=== PATIENT | female | born 1960 | race Caucasian/White ===

== ENCOUNTER 2018-11-04 09:24 | Day surgery (SDC) | payer MEDICARE, OTHER ==
[~2018-11-04] VITALS: Ht 154.9 cm; Wt 65.8 kg
[~2018-11-04 09:24] MED LIST: ATOR40TA PO; BACL10 PO; GABA300 PO; HYDHCL25 PO; OMEPRAZOLE20 MG PO; Prinivil10 MG PO
--- NOTE | 2018-11-04 09:53 | NUR ---
Ambulatory in Day SurgeryPatient states colon prep results clear. History, Chart, Medications and Allergies reviewed before start of procedure.Lungs clear T/O to Auscultation. Patient confirms NPO status and agrees with scheduled surgery. Pre-Op teaching done. Pt verbalizes understanding.
--- NOTE | 2018-11-04 10:30 | NUR ---
11/04/18 1030 CharliPankaj PATIENT DETERMINED TO BE ASA APPROPRIATE FOR PROPOFOL SEDATION PRIOR TO START OF PROCEDURE BY . 3-LEAD EKG REVIEWED WITH PHYSICIAN PRIOR TO START OF PROCEDURE.Patient to ENDO 1History, Chart, Medications and Allergies reviewed before start of procedure.MONITOR INTACT WITH CONTINUOUS PULSE OXIMETRY AND INTERMITTENT BP.O2 VIA N/C INTACT THROUGHOUT SEDATION/PROCEDURE.
--- NOTE | 2018-11-04 11:15 | NUR ---
Discharge instructions reviewed with patient. Patient verbalizes understanding. Copy given to patient to take home.
== END 2018-11-04 11:23 | disposition home or self-care (01) ==
LOC: ORSCMMR 09:24 → ORD 10:30 → ORSCMMR 10:30
PROVIDERS: Internal Medicine Gastroenterology
PROC: 0DBK8ZX Excision of Ascending Colon, Via Natural or Artificial Opening Endoscopic, Diagnostic (ICD-10-PCS; principal; 2018-11-04 10:30)
PROC: 0DBH8ZX Excision of Cecum, Via Natural or Artificial Opening Endoscopic, Diagnostic (ICD-10-PCS; principal; 2018-11-04 10:30)
DX: K62.5 Hemorrhage of anus and rectum (principal); D12.2 Benign neoplasm of ascending colon; D12.0 Benign neoplasm of cecum; K57.30 Diverticulosis of large intestine without perforation or abscess without bleeding; K64.8 Other hemorrhoids; K64.4 Residual hemorrhoidal skin tags; I10 Essential (primary) hypertension; K21.9 Gastro-esophageal reflux disease without esophagitis; E78.00 Pure hypercholesterolemia, unspecified; F17.210 Nicotine dependence, cigarettes, uncomplicated; Z79.899 Other long term (current) drug therapy
CPT/HCPCS: 88305; J2704; J7120

== ENCOUNTER 2019-02-04 16:12 | Emergency (ER) | payer MEDICARE, OTHER ==
[~2019-02-04] VITALS: Ht 154.9 cm; Wt 63.5 kg
[2019-02-04] MEDS ORDERED: Norco 5-325 Ta1 EACH PO (17:34)
== END 2019-02-04 17:45 | disposition home or self-care (01) ==
LOC: ER 16:12
DX: T84.020A Dislocation of internal right hip prosthesis, initial encounter (principal); I10 Essential (primary) hypertension; E78.5 Hyperlipidemia, unspecified; K21.9 Gastro-esophageal reflux disease without esophagitis; F17.210 Nicotine dependence, cigarettes, uncomplicated; Z79.899 Other long term (current) drug therapy
CPT/HCPCS: 27265; 73501; 73502; 99152; 99283-25; J2704; J7030

== ENCOUNTER → 2020-04-25 | Outpatient (CLI) | payer MEDICARE, OTHER ==
[~2020-04-25] MED LIST changes: +CHLO25 PO; +Norco 5-325 Ta1 EACH PO
[2020-04-27 11:10] LABS: HPV 16 Negative (Negative); HPV 18 Negative (Negative); HPV OTHER HR TYPES Negative (Negative)
== END | disposition home or self-care (01) ==
LOC: LAB SHORT 14:09 → LAB UCHC 14:09
PROVIDERS: Physician Assistant
DX: Z01.419 Encounter for gynecological examination (general) (routine) without abnormal findings (principal)
CPT/HCPCS: 87624; G0123

== ENCOUNTER 2020-06-21 21:03 | Emergency (ER) | payer MEDICARE, OTHER ==
[~2020-06-21] VITALS: Ht 152.4 cm; Wt 56.2 kg
[2020-06-21] MEDS ORDERED: IBU800 M1 PO (21:29)
[2020-06-21] MEDS ORDERED: TIZA4 PO (21:30)
[2020-06-21] MEDS ORDERED: PRINIVIL10 MG PO (21:31)
== END 2020-06-22 02:23 | disposition home or self-care (01) ==
LOC: ER 21:03
DX: T84.020A Dislocation of internal right hip prosthesis, initial encounter (principal); F17.200 Nicotine dependence, unspecified, uncomplicated; Z79.899 Other long term (current) drug therapy; X50.1XXA Overexertion from prolonged static or awkward postures, initial encounter
CPT/HCPCS: 27266; 36415; 73501; 96374-59; 96375; 99284-25; J1170; J2405; J2704; J7030

== ENCOUNTER 2021-03-29 17:27 | Emergency (ER) | payer MEDICARE, OTHER ==
[~2021-03-29] VITALS: Ht 152.4 cm; Wt 54.4 kg
[~2021-03-29 17:27] MED LIST changes: +IBU800 M1 PO; +PRINIVIL10 MG PO; +TIZA4 PO
[2021-03-29] MEDS ORDERED: Buspirone HCl15 MG PO (17:47)
== END 2021-03-29 21:45 | disposition home or self-care (01) ==
LOC: ER 17:27
DX: M24.451 Recurrent dislocation, right hip (principal); Z79.899 Other long term (current) drug therapy; F17.210 Nicotine dependence, cigarettes, uncomplicated; Z96.643 Presence of artificial hip joint, bilateral
CPT/HCPCS: 27222; 36415; 73501; 73502; 99152; 99283-25; J2704; J7030

== ENCOUNTER 2024-01-09 13:49 | Inpatient (IN) | payer MEDICARE, OTHER ==
[~2024-01-09] VITALS: Ht 152.4 cm; Wt 65.6 kg
[~2024-01-09 13:49] MED LIST changes: -AMOCLA875 PO; -Acetaminophen325 M1 PO; -CEPH500 PO; -Clindamycin HC150 MG PO; -DULOXETINE HCL60 M1 PO; -SULFAMETHOXAZO1 EAC1 PO; -VISBIOME 112.51 EACH PO
[2024-01-09 14:39] LABS: Hematocrit 32.1 % (33.0-51.0); Hemoglobin 10.8 g/dL (11.5-16.0); Mean Corpuscular HGB 29.3 pg (26.0-34.0); Mean Corpuscular HGB Conc 33.6 g/dL (31.5-36.5); Mean Corpuscular Volume 87 fL (80-100); Mean Platelet Volume 9.6 fL (9.1-12.4); Platelet Count 237 K/mm3 (150-400); RDW Standard Deviation 45.2 fL (35.1-46.3); Red Blood Cell Count 3.68 M/mm3 (3.80-5.20); White Blood Cell Count 26.51 K/mm3 (4.00-11.30)
[2024-01-09 15:00] LABS: BAND PERCENT MAN 4 % (0-8); BASOPHILS PERCENT MAN 0 % (0-2); EOSINOPHILS ABSOLUTE MAN 0.79 K/mm3 (0.00-0.68); EOSINOPHILS PERCENT MAN 3 % (0-6); LYMPHOCYTES ABSOLUTE MAN 0.53 K/mm3 (0.84-5.20); LYMPHOCYTES PERCENT MAN 2 % (21-46); MONOCYTES ABSOLUTE MAN 1.06 K/mm3 (0.16-1.47); MONOCYTES PERCENT MAN 4 % (4-13); NEUTROPHILS ABSOLUTE MAN 24.12 K/mm3 (1.96-9.15); SEG NEUTROPHILS PERCENT MAN 87 % (41-73); TOTAL CELLS COUNTED 100
[2024-01-09 15:02] LABS: Albumin, Blood 2.9 g/dL (3.4-5.0); Albumin/Globulin Ratio 0.9 (0.8-1.8); Bilirubin, Total 0.6 mg/dL (0.1-1.0); Bun/Creatinine Ratio 20.1 (12.0-20.0); Calcium, Blood 7.7 mg/dL (8.5-10.1); Creatinine, Blood 1.49 mg/dL (0.40-1.00); Globulin, Blood 3.4 g/dL (2.2-4.0); Total Protein, Blood 6.3 g/dL (6.4-8.2)
[2024-01-09] MEDS ORDERED: NS 1,000 ML IV SCH ×4 (17:10→17:55)
[2024-01-09] MEDS ORDERED: Piperacillin/Tazobactam Sod 3.375 GM in NS 100 ML IV ONE (17:15)
[2024-01-09] MEDS ORDERED: Vancomycin HCL 1,250 MG in NS 250 ML IV ONE (17:20)
[2024-01-09] MEDS ORDERED: FentaNYL Citrate 50 MCG/ML 2 ML Injection IV PRN (17:45)
[2024-01-09] MEDS ORDERED: Acetaminophen 325 MG TABLET PO PRN (17:45)
[2024-01-09] MEDS ORDERED: Ondansetron HCl 2 MG / ML 2ML Vial IV PRN (17:50)
[2024-01-09] MEDS ORDERED: Potassium Chloride 40 MEQ in NS 250 ML IV STA (17:55)
[2024-01-09] MEDS ORDERED: Enoxaparin 40 MG/0.4 ML SYR SC SCH (18:00)
--- NOTE | 2024-01-09 18:30 | NUR ---
ADMISSION PATIENT ADMITTED TO MEDICAL FLOOR. PATIENT INTERACTIVE AND ANXIOUS. PATIENT AMBULATED TO BATHROOM INDEPENDENTLY. PATIENT HAVING PAIN IN R ARM, INCREASING WITH PAIN. PATIENT DENIES ANY INJURY TO R ARM.
[2024-01-09 18:56] VITALS: BP 139/76
[2024-01-09] MEDS ORDERED: Magnesium Sulf 2 GM/Water 50ML 50 ML IV ONE (19:40)
[2024-01-09] MEDS ORDERED: MethylPREDNISolone Sod Succ 125 MG Vial IV SCH (20:00)
[2024-01-09] MEDS ORDERED: Clindamycin 900mg in D5W 50ML 50 ML IV SCH (20:00)
[2024-01-09] MEDS ORDERED: Gabapentin 100 MG Cap PO SCH (21:00)
[2024-01-10 02:17] VITALS: BP 119/70
[2024-01-10] MEDS ORDERED: NS 250 ML IV PRN (02:20)
[2024-01-10 04:17] LABS: BASOPHILS ABSOLUTE AUTO 0.05 K/mm3 (0.00-0.23); BASOPHILS PERCENT AUTO 0 % (0-2); EOSINOPHILS PERCENT AUTO 0 % (0-6); Hematocrit 30.8 % (33.0-51.0); IMMATURE GRAN ABSOLUTE AUTO 0.66 K/mm3 (0.00-0.10); IMMATURE GRAN PERCENT AUTO 3 % (0-1); LYMPHOCYTES ABSOLUTE AUTO 0.26 K/mm3 (0.84-5.20); LYMPHOCYTES PERCENT AUTO 1 % (21-46); MONOCYTES ABSOLUTE AUTO 0.28 K/mm3 (0.16-1.47); MONOCYTES PERCENT AUTO 1 % (4-13); Mean Corpuscular HGB 29.6 pg (26.0-34.0); Mean Corpuscular HGB Conc 32.5 g/dL (31.5-36.5); Mean Corpuscular Volume 91 fL (80-100); Mean Platelet Volume 10.1 fL (9.1-12.4); NEUTROPHILS ABSOLUTE AUTO 22.61 K/mm3 (1.96-9.15); NEUTROPHILS PERCENT AUTO 95 % (41-73); Platelet Count 208 K/mm3 (150-400); RDW Coefficient Variation 14.6 % (11.7-14.2); RDW Standard Deviation 48.6 fL (35.1-46.3); Red Blood Cell Count 3.38 M/mm3 (3.80-5.20); White Blood Cell Count 23.86 K/mm3 (4.00-11.30)
[2024-01-10 04:23] LABS: Source, Urine Clean Catch
[2024-01-10 04:27] LABS: Bilirubin, Urine Neg (Neg); Blood, Urine Neg (Neg); Glucose Qualitative, Urine 1+ (Neg); Ketones, Urine 1+ (Neg); Leukocyte Esterase, Urine Neg (Neg); Nitrite, Urine Neg (Neg); Protein, Urine 1+ (Neg); Specific Gravity, Urine 1.025 (1.003-1.022); Urobilinogen, Urine NORM (Normal)
[2024-01-10 04:33] LABS: Appearance, Urine Clear (Clear); Color, Urine Yellow (P-Yellow)
[2024-01-10 04:52] LABS: Albumin, Blood 2.5 g/dL (3.4-5.0); Albumin/Globulin Ratio 0.7 (0.8-1.8); Bilirubin, Total 0.7 mg/dL (0.1-1.0); Calcium, Blood 7.9 mg/dL (8.5-10.1); Creatinine, Blood 0.87 mg/dL (0.40-1.00); Globulin, Blood 3.5 g/dL (2.2-4.0); Magnesium, Blood 1.5 mg/dL (1.6-2.4)
[2024-01-10] MEDS ORDERED: Magnesium Sulf 2 GM/Water 50ML 50 ML IV ONE (05:10)
--- NOTE | 2024-01-10 05:10 | NUR ---
SHIFT SUMMARY NOC PT A/O X 4. PLEASANT AND COOPRATIVE WITH CARE. VSS. ADMIT AT SHIFT CHANGE WITH RUE CELLULITIS FULL LENGTH OF ARM, THERE IS SOME CLEAR FLUID WEEPING INTERMITTENTLY FROM R THUMB AREA. THERE IS A BORDER DRAWN AROUND REDNESS. PT HAS REQUESTED PAIN RX ONLY ONCE. PT ON TELE SINUS RHYTHM IN 90'S. PT RECEIVING CLYNDAMYCIN FOR CELLULITIS AFTER ONE TIME DOSE OF VANCOMYCIN. PT IS INDEPENDENT/CONT IN ROOM. INFUSION OF NS @ 100 ML/HR X 1 BAG RUNNING. PT HAS UPPER VENOUS DUPLEX ON RIGHT ARM AND RENAL BLADDER US SCHEDULED FOR TODAY. MG, K, NA ALL LOW UPON ADMIT, REPLACEMENTS GIVEN AND K, AND NA GOOD, BUT MG STILL LOW ANOTHER DOSE OF 2G MG SULFATE ORDERED. PT IS CURRENTLY RESTING WITH BED IN LOWEST POSITION, AND CALL LIGHT WITHIN REACH.
[2024-01-10 07:45] VITALS: BP 126/79
[2024-01-10] MEDS ORDERED: Omeprazole 20 MG CapCR PO SCH (09:00)
--- NOTE | 2024-01-10 17:25 | NUR ---
SHIFT SUMMARY: PT HAS BEEN A&Ox4, ANSWERS QUESTIONS APPROPRIATELY, ABLE TO MAKE NEEDS KNOWN. PT DENIES SOB/CP, RESPIRATORY AND CARDIAC WNL. PT HAS BEEN CONTINENT, INDEPENDENT IN ROOM, SHOWERS INDEPENDENTLY. US AND CT SCAN OF RUE BOTH COMPLETED THIS SHIFT. RUE CONTINUES RED AND SWOLLEN BUT PT DOES STATE SOME IMPROVEMENT TO PAIN, MINIMAL CHANGE TO REDNESS T/OUT THIS SHIFT. IV ABX INFUSING PER ORDERS. PT RESTING IN BED W/CALL LIGHT IN REACH. WILL CONTINUE TO MONITOR AND TREAT ACCORDINGLY UNTIL CHANGE OF SHIFT.
[2024-01-10] MEDS ORDERED: HYDROcodone 5-APAP 325 TAB PO PRN (17:40)
[2024-01-10 20:00] VITALS: BP 117/63
--- NOTE | 2024-01-10 22:22 | NUR ---
ASSUMED CARE WHILE PRIMARY NURSE TOOK BREAK. MEDICATED PT PER EMAR. PT RESTING IN BED AND CALL LIGHT WITHIN REACH.
--- NOTE | 2024-01-10 22:26 | NUR ---
ASSUMED CARE WHILE PRIMARY NURSE TOOK BREAK. PT DENIES NEEDS AT THIS TIME. CALL LIGHT WITHIN REACH.
--- NOTE | 2024-01-11 01:35 | NUR ---
ASSUMED CARE OF PT WHEN PRIMARY NURSE WENT TO BREAK. PT DENIES NEEDS AT THIS TIME AND CALL LIGHT WITHIN REACH.
--- NOTE | 2024-01-11 04:38 | NUR ---
ASSUMED CARE OF PT WHILE PRIMARY RN ON BREAK. PT DENIES NEEDS AT THIS TIME. CALL LIGHT WITHIN REACH.
[2024-01-11 05:08] VITALS: BP 133/85
[2024-01-11 05:12] LABS: BASOPHILS ABSOLUTE AUTO 0.03 K/mm3 (0.00-0.23); BASOPHILS PERCENT AUTO 0 % (0-2); EOSINOPHILS PERCENT AUTO 0 % (0-6); Hemoglobin 9.7 g/dL (11.5-16.0); IMMATURE GRAN ABSOLUTE AUTO 0.18 K/mm3 (0.00-0.10); IMMATURE GRAN PERCENT AUTO 1 % (0-1); LYMPHOCYTES ABSOLUTE AUTO 0.52 K/mm3 (0.84-5.20); LYMPHOCYTES PERCENT AUTO 2 % (21-46); MONOCYTES PERCENT AUTO 4 % (4-13); Mean Corpuscular HGB 29.4 pg (26.0-34.0); Mean Corpuscular HGB Conc 33.4 g/dL (31.5-36.5); Mean Corpuscular Volume 88 fL (80-100); NEUTROPHILS ABSOLUTE AUTO 20.85 K/mm3 (1.96-9.15); NEUTROPHILS PERCENT AUTO 93 % (41-73); Platelet Count 242 K/mm3 (150-400); RDW Coefficient Variation 14.4 % (11.7-14.2); RDW Standard Deviation 46.7 fL (35.1-46.3); White Blood Cell Count 22.48 K/mm3 (4.00-11.30)
--- NOTE | 2024-01-11 05:35 | NUR ---
SHIFT SUMMARY NOC PT A/O X 4. PLEASANT AND COMMUNICATES NEEDS APPROPRIATELY. VSS. NO ACUTE CHANGES TO REPORT. RUE STILL RED, SWOLLEN, AND WARM TO THE TOUCH, VERY SLIGHT WEEPING. PAIN BEING MANAGED PER EMAR ALONG WITH ICE PACK. PT CURRENTLY RESTING WITH BED IN LOWEST POSITION, AND CALL LIGHT WITHIN REACH.
[2024-01-11 06:03] LABS: BAND PERCENT MAN 1 % (0-8); BASOPHILS PERCENT MAN 0 % (0-2); EOSINOPHILS PERCENT MAN 0 % (0-6); LYMPHOCYTES ABSOLUTE MAN 0.44 K/mm3 (0.84-5.20); LYMPHOCYTES PERCENT MAN 2 % (21-46); MONOCYTES ABSOLUTE MAN 0.67 K/mm3 (0.16-1.47); MONOCYTES PERCENT MAN 3 % (4-13); NEUTROPHILS ABSOLUTE MAN 21.35 K/mm3 (1.96-9.15); SEG NEUTROPHILS PERCENT MAN 94 % (41-73); TOTAL CELLS COUNTED 100
[2024-01-11 06:17] LABS: Albumin, Blood 2.4 g/dL (3.4-5.0); Albumin/Globulin Ratio 0.7 (0.8-1.8); Bilirubin, Total 0.5 mg/dL (0.1-1.0); Bun/Creatinine Ratio 25.4 (12.0-20.0); Calcium, Blood 8.3 mg/dL (8.5-10.1); Creatinine, Blood 0.79 mg/dL (0.40-1.00); Globulin, Blood 3.6 g/dL (2.2-4.0); Potassium, Blood 3.9 mmol/L (3.5-5.5)
[2024-01-11 07:49] VITALS: BP 143/77
[2024-01-11] MEDS ORDERED: CefTRIAXone Sodium 1,000 MG in NS 100 ML IV SCH (09:13)
[2024-01-11] MEDS ORDERED: Lisinopril 10 MG Tab PO SCH (14:00)
[2024-01-11 14:11] VITALS: BP 140/80
--- NOTE | 2024-01-11 14:22 | NUR ---
CALLED DR SPENCER- PT STATES THE HYDROCODONE IS INEFFECTIVE FOR HER PAIN MANAGEMENT AND IS REQUESTING ADITIONAL MEDS. CALLED AND LEFT A MESSAGE WITH DR SPENCER. WAITING FOR A CALL BACK
[2024-01-11] MEDS ORDERED: Ketorolac Tromethamine 15mg Vial IV PRN (14:30)
--- NOTE | 2024-01-11 14:47 | NUR ---
SPOKE TO DR SPENCER- PT SLEEPS VERY DEEPLY; UNABLE TO ROUSE ENOUGH TO SAFELY GIVE PO HYDRALIZINE. SPOKE TO DR SPENCER, SHE IS AWARE, OK TO HOLD THIS MED.
--- NOTE | 2024-01-11 15:36 | NUR ---
IV SITE CHANGED- PT IV FLUSHED WELL PRIOR TO ADMINISTRATION OF IV TORADOL. HALF WAY THROUGH THE PUSH THE PT STATED PAIN AT THE IV SITE, IV WAS NOTED TO BE LEAKING JUST A LITTLE AND SEEMED A LITTLE SWOLLEN. IV DC'D. NEW IV PLACED AND IV TORADOL FINISHED. NEW IV FLUSHED WELL AFTER PAIN MED ADMINISTRATION.
--- NOTE | 2024-01-11 15:39 | NUR ---
SHIFT SUMMARY- PT ALERT, ORIENTED AND INDEPENDENT IN THE ROOM. PT HAD A NEW IV PLACED TODAY, IV TORADOL ADDED Q6P THE PT MAY NEED. PT IN BED, CALL LIGHT IN REACH NO S&S OF DISTRESS NOTED. SHE HAS HAD PAIN T/O THE SHIFT AND NORCO DOES NOT SEEM TO HELP. PT RECENTLY HAD THE FIRST DOSE OF TORADOL. WILL REASSESS PAIN LATER.
[2024-01-11 19:31] VITALS: BP 144/78
[2024-01-12 03:29] VITALS: BP 139/78
--- NOTE | 2024-01-12 04:49 | NUR ---
SHIFT SUMMARY: Pt admitted for cellulitis of the right arm and is a full code. Is alert and able to make needs known. ADLs have been independent. Pain has been managed by PRN pain management and cold therapy.
[2024-01-12 05:25] LABS: BASOPHILS ABSOLUTE AUTO 0.03 K/mm3 (0.00-0.23); BASOPHILS PERCENT AUTO 0 % (0-2); EOSINOPHILS ABSOLUTE AUTO 0.26 K/mm3 (0.00-0.68); EOSINOPHILS PERCENT AUTO 3 % (0-6); Hemoglobin 10.2 g/dL (11.5-16.0); IMMATURE GRAN ABSOLUTE AUTO 0.11 K/mm3 (0.00-0.10); IMMATURE GRAN PERCENT AUTO 1 % (0-1); LYMPHOCYTES ABSOLUTE AUTO 1.64 K/mm3 (0.84-5.20); LYMPHOCYTES PERCENT AUTO 19 % (21-46); MONOCYTES ABSOLUTE AUTO 0.93 K/mm3 (0.16-1.47); MONOCYTES PERCENT AUTO 11 % (4-13); Mean Corpuscular HGB 29.7 pg (26.0-34.0); Mean Corpuscular Volume 87 fL (80-100); Mean Platelet Volume 9.8 fL (9.1-12.4); NEUTROPHILS ABSOLUTE AUTO 5.69 K/mm3 (1.96-9.15); NEUTROPHILS PERCENT AUTO 66 % (41-73); Platelet Count 273 K/mm3 (150-400); RDW Coefficient Variation 14.6 % (11.7-14.2); RDW Standard Deviation 46.7 fL (35.1-46.3); Red Blood Cell Count 3.44 M/mm3 (3.80-5.20); White Blood Cell Count 8.66 K/mm3 (4.00-11.30)
[2024-01-12 07:38] VITALS: BP 152/84
[2024-01-12] MEDS ORDERED: DULOXETINE HCL60 M1 PO (14:24)
[2024-01-12] MEDS ORDERED: SULFAMETHOXAZO1 EAC1 PO (14:25)
[2024-01-12] MEDS ORDERED: CEPH500 PO (14:25)
[2024-01-12 16:32] VITALS: BP 151/78
--- NOTE | 2024-01-12 17:29 | NUR ---
SHIFT SUMMARY DR. HENAO CONSULTED TODAY FOR PATIENT CELLULITIS. OK TO FEED PATIENT TONIGHT. PLAN FOR NPO AFTER MIGNIGHT IN CASE OF A SURGERY TOMORROW. PT MEDICATED FOR PAIN T/O DAY. ALTERNATING TORADOL & NORCO. SEE EMAR. PT SHOWERED TODAY. NO DRAINAGE FROM WOUND TO HAND TODAY. OPEN TO AIR. NO OTHER ACUTE CHANGES IN ASSESSMENT AT THIS TIME. VS REVIEWED. CALL LIGHT IN REACH. DENIES OTHER NEEDS AT THIS TIME
[2024-01-12 20:02] VITALS: BP 139/78
[2024-01-13] VITALS (17 sets, daily range): BP systolic 134–181; BP diastolic 65–97
--- NOTE | 2024-01-13 06:15 | NUR ---
SHIFT SUMMARY: A&OX4 COOPERATIVE. RA DENIES SOB. NO TELE DENIES CP/PRESSURE. IND TO BR. BM 01/11. LFA PIV SL. REGULAR DIET TOLERATING WELL PT SWITCHED TO NPO 0000 IN ANTICIPATION OF ANTICIPATING A PROCEDURE. PT TOLERATES PILLS WHOLE NO SWALLOWING ISSUES. BC NO GROWTH >3 DAYS. PT C/O SEVERE PAIN MODERATELY RESOLVED WITH Q6 TORADOL (X2 ADMIN) AND Q4 NORCO (X3 ADMIN). PT HAS CELLULITIS TO R WRIST/HAND. PT STATES IMPROVEMENT. QUESTIONS ANSWERED. PT DENIES CONCERNS. SAFETTY PRECAUTIONS MONITORED.
[2024-01-13 08:27] LABS: BASOPHILS ABSOLUTE AUTO 0.05 K/mm3 (0.00-0.23); BASOPHILS PERCENT AUTO 1 % (0-2); EOSINOPHILS ABSOLUTE AUTO 0.24 K/mm3 (0.00-0.68); EOSINOPHILS PERCENT AUTO 3 % (0-6); Hemoglobin 11.6 g/dL (11.5-16.0); IMMATURE GRAN ABSOLUTE AUTO 0.32 K/mm3 (0.00-0.10); IMMATURE GRAN PERCENT AUTO 4 % (0-1); LYMPHOCYTES ABSOLUTE AUTO 1.77 K/mm3 (0.84-5.20); LYMPHOCYTES PERCENT AUTO 24 % (21-46); MONOCYTES ABSOLUTE AUTO 0.87 K/mm3 (0.16-1.47); MONOCYTES PERCENT AUTO 12 % (4-13); Mean Corpuscular HGB 28.9 pg (26.0-34.0); Mean Corpuscular HGB Conc 34.1 g/dL (31.5-36.5); Mean Corpuscular Volume 85 fL (80-100); Mean Platelet Volume 9.6 fL (9.1-12.4); NEUTROPHILS ABSOLUTE AUTO 4.02 K/mm3 (1.96-9.15); NEUTROPHILS PERCENT AUTO 55 % (41-73); Platelet Count 335 K/mm3 (150-400); RDW Coefficient Variation 14.6 % (11.7-14.2); RDW Standard Deviation 45.3 fL (35.1-46.3); Red Blood Cell Count 4.02 M/mm3 (3.80-5.20); White Blood Cell Count 7.27 K/mm3 (4.00-11.30)
[2024-01-13] MEDS ORDERED: propofoL 20 ML IV ONE (15:42)
[2024-01-13] MEDS ORDERED: FentaNYL Citrate 50 MCG/ML 2 ML Injection ONE ×2 (15:42→16:36)
[2024-01-13] MEDS ORDERED: Ondansetron HCl 2 MG / ML 2ML Vial ONE (15:43)
[2024-01-13] MEDS ORDERED: Lidocaine HCl 2% 20 ML MDV ONE (15:43)
[2024-01-13] MEDS ORDERED: Dexamethasone Sod Phos 10 MG/ML 1ML VIAL ONE (15:43)
[2024-01-13] MEDS ORDERED: Lactated Ringer's 1,000 ML IV ONE (16:03)
[2024-01-13] MEDS ORDERED: Lactated Ringer's 1,000 ML IV SCH (16:15)
[2024-01-13] MEDS ORDERED: Bupivacaine 0.5% HCl 5 MG/ML 30MLVIAL ONE (16:17)
[2024-01-13] MEDS ORDERED: HYDROmorphone HCl/Pf 1MG SYR ONE (16:51)
--- NOTE | 2024-01-13 16:51 | NUR ---
DAYSHIFT SUMMARY Patient AOx4, NPO awaiting I&D procedure. Procedure performed this afternoon, I&D and darlin drain placed. MD instructed RN to change dressing on thursday, but if the site bleeds through, change to new dressing. And the darlin drains will propably fall out by thursday, drain is not sutured in place. Blood cultures collected from wound site. IV ABX administred. [place] & Toradol given for pain. VSS.
[2024-01-14 05:09] VITALS: BP 174/66
[2024-01-14 05:13] LABS: BASOPHILS ABSOLUTE AUTO 0.03 K/mm3 (0.00-0.23); BASOPHILS PERCENT AUTO 0 % (0-2); EOSINOPHILS ABSOLUTE AUTO 0.02 K/mm3 (0.00-0.68); EOSINOPHILS PERCENT AUTO 0 % (0-6); Hematocrit 32.7 % (33.0-51.0); IMMATURE GRAN ABSOLUTE AUTO 0.39 K/mm3 (0.00-0.10); IMMATURE GRAN PERCENT AUTO 4 % (0-1); LYMPHOCYTES ABSOLUTE AUTO 1.59 K/mm3 (0.84-5.20); LYMPHOCYTES PERCENT AUTO 17 % (21-46); MONOCYTES ABSOLUTE AUTO 0.76 K/mm3 (0.16-1.47); MONOCYTES PERCENT AUTO 8 % (4-13); Mean Corpuscular HGB 28.6 pg (26.0-34.0); Mean Corpuscular HGB Conc 33.6 g/dL (31.5-36.5); Mean Corpuscular Volume 85 fL (80-100); Mean Platelet Volume 9.5 fL (9.1-12.4); NEUTROPHILS ABSOLUTE AUTO 6.58 K/mm3 (1.96-9.15); NEUTROPHILS PERCENT AUTO 70 % (41-73); Platelet Count 347 K/mm3 (150-400); RDW Coefficient Variation 14.3 % (11.7-14.2); RDW Standard Deviation 44.4 fL (35.1-46.3); Red Blood Cell Count 3.85 M/mm3 (3.80-5.20); White Blood Cell Count 9.37 K/mm3 (4.00-11.30)
--- NOTE | 2024-01-14 05:50 | NUR ---
SHIFT SUMMARY PT RECEIVED I&D DURING DAY SHIFT WITH A DRAIN PLACED. NO LEAKAGE NOTED THIS SHIFT. MEDICATED FOR PAIN X2. IV IN LEFT FOREARM EXTRAVATED, AND NEW IV WAS PLACED IN LEFT WRIST. PT HAS BEEN PLEASANT AND COOPERATIVE WITH CARE THIS SHIFT.
[2024-01-14 07:22] VITALS: BP 173/88
[2024-01-14 16:01] VITALS: BP 153/86
--- NOTE | 2024-01-14 17:24 | NUR ---
SUMMARY NO ACUTE CHANGES. PT IS ALERT AND ORIENTED X4, INDEPENDENT IN ROOM, ABLE TO MAKE NEEDS KNOWN. DRESSING CHANGED TODAY PER DR. HENAO, DRESSING IS TO BE CHANGED DAILY. BOTH DRAINS HAVE FALLEN OUT EXPECTED. DRESSING IS C/D/I. ANTIBIOTICS CONTINUED.
[2024-01-14 19:24] VITALS: BP 168/74
[2024-01-15 03:08] VITALS: BP 146/86
--- NOTE | 2024-01-15 05:47 | NUR ---
SHIFT SUMMARY PT DRAIN REMOVED PER SHIFT REPORT DURING DAY SHIFT 01/14/24. NEW ORDER FOR DAILY DRESSING CHANGES. MEDICATED FOR PAIN X2 DURING CABLE MECHANIC. PT IS PLEASANT AND COOPERATIVE WITH CARE AND MOTIVATED TO GO HOME. SHE WAS ABLE TO GET SOME SLEEP AFTER SECOND PAIN MOTOR GRADER ROUGH GRADE.
[2024-01-15 07:21] VITALS: BP 125/86
[2024-01-15] MEDS ORDERED: AMOCLA875 PO (11:20)
[2024-01-15] MEDS ORDERED: Acetaminophen325 M1 PO (11:20)
[2024-01-15] MEDS ORDERED: Norco 5-325 Ta1 EACH PO (11:20)
[2024-01-15] MEDS ORDERED: VISBIOME 112.51 EACH PO (11:21)
[2024-01-15] MEDS ORDERED: Amoxicillin/Clavulanate K 875 MG Tab PO SCH (12:00)
--- NOTE | 2024-01-15 13:59 | NUR ---
PT DISCHARGED HOME. DISCHARGE INSTRUCTIONS DISCUSSED WITH PT. NO QUESTIONS AT THIS TIME.
[2024-01-15] MEDS ORDERED: Lactobacil 2-S.Thermo-Bifido 1 1 Cap PO SCH (21:00)
== END 2024-01-15 13:32 | disposition home or self-care (01) | DRG 603 ==
LOC: ER 13:49 → MEDS 17:43 → ENPENDDIS 01-15 11:16 → MEDS 01-15 13:32
PROVIDERS: Internal Medicine; Nurse Practitioner; Orthopaedic Surgery Sports Medicine; ADMIT Internal Medicine
PROC: 0J9J0ZZ Drainage of Right Hand Subcutaneous Tissue and Fascia, Open Approach (ICD-10-PCS; principal; 2024-01-13 15:44)
DX: L03.113 Cellulitis of right upper limb (principal); N17.9 Acute kidney failure, unspecified; B95.0 Streptococcus, group A, as the cause of diseases classified elsewhere; I10 Essential (primary) hypertension; F17.200 Nicotine dependence, unspecified, uncomplicated; G62.9 Polyneuropathy, unspecified; E87.6 Hypokalemia; E78.5 Hyperlipidemia, unspecified; N14.2 Nephropathy induced by unspecified drug, medicament or biological substance; K21.9 Gastro-esophageal reflux disease without esophagitis; G89.29 Other chronic pain; T50.905A Adverse effect of unspecified drugs, medicaments and biological substances, initial encounter; Z96.643 Presence of artificial hip joint, bilateral; Z79.1 Long term (current) use of non-steroidal anti-inflammatories (NSAID)
CPT/HCPCS: 36415; 73201; 76770; 80053; 83605; 83735; 83880; 85025; 85651; 86140; 87040; 87070; 87075; 87147; 87205; 93971; 99284; A9270; J0696; J1100; J1170; J1650; J1885; J2405; J2543; J2704; J2919; J3010; J3370; J3475; J3480; J7030; J7050; J7120; Q9967

== ENCOUNTER → 2024-01-09 | Outpatient (CLI) | payer MEDICARE, OTHER ==
[~2024-01-09] MED LIST changes: +AMOCLA875 PO; +Acetaminophen325 M1 PO; +Buspirone HCl15 MG PO; +CEPH500 PO; +Clindamycin HC150 MG PO; +DULOXETINE HCL60 M1 PO; +SULFAMETHOXAZO1 EAC1 PO; +VISBIOME 112.51 EACH PO
[2024-01-09 12:24] LABS: BASOPHILS ABSOLUTE AUTO 0.07 K/mm3 (0.00-0.23); BASOPHILS PERCENT AUTO 0 % (0-2); EOSINOPHILS PERCENT AUTO 2 % (0-6); Hematocrit 33.9 % (33.0-51.0); Hemoglobin 11.6 g/dL (11.5-16.0); IMMATURE GRAN ABSOLUTE AUTO 0.73 K/mm3 (0.00-0.10); IMMATURE GRAN PERCENT AUTO 3 % (0-1); LYMPHOCYTES ABSOLUTE AUTO 0.59 K/mm3 (0.84-5.20); LYMPHOCYTES PERCENT AUTO 2 % (21-46); MONOCYTES ABSOLUTE AUTO 0.66 K/mm3 (0.16-1.47); MONOCYTES PERCENT AUTO 3 % (4-13); Mean Corpuscular HGB 29.7 pg (26.0-34.0); Mean Corpuscular HGB Conc 34.2 g/dL (31.5-36.5); Mean Corpuscular Volume 87 fL (80-100); Mean Platelet Volume 9.9 fL (9.1-12.4); NEUTROPHILS ABSOLUTE AUTO 23.41 K/mm3 (1.96-9.15); NEUTROPHILS PERCENT AUTO 90 % (41-73); Platelet Count 256 K/mm3 (150-400); RDW Coefficient Variation 14.2 % (11.7-14.2); White Blood Cell Count 25.96 K/mm3 (4.00-11.30)
[2024-01-09 12:49] LABS: Albumin, Blood 3.1 g/dL (3.4-5.0); Albumin/Globulin Ratio 0.9 (0.8-1.8); Bilirubin, Total 0.7 mg/dL (0.1-1.0); Calcium, Blood 8.2 mg/dL (8.5-10.1); Creatinine, Blood 1.68 mg/dL (0.40-1.00); Globulin, Blood 3.5 g/dL (2.2-4.0); Potassium, Blood 2.7 mmol/L (3.5-5.5); Total Protein, Blood 6.6 g/dL (6.4-8.2)
== END ==
LOC: LAB 12:17 → LAB SHORT 12:17
PROVIDERS: Physician Assistant
DX: L03.113 Cellulitis of right upper limb (principal)
CPT/HCPCS: 80053; 85025; 87040

== ENCOUNTER 2024-01-19 15:08 | Emergency (ER) | payer MEDICARE, OTHER ==
[~2024-01-19] VITALS: Ht 162.6 cm; Wt 63.5 kg
[~2024-01-19 15:08] MED LIST changes: +AMOCLA875 PO; +Acetaminophen325 M1 PO; +CEPH500 PO; +DULOXETINE HCL60 M1 PO; +SULFAMETHOXAZO1 EAC1 PO; +VISBIOME 112.51 EACH PO
[2024-01-19 16:46] LABS: BASOPHILS ABSOLUTE AUTO 0.04 K/mm3 (0.00-0.23); BASOPHILS PERCENT AUTO 1 % (0-2); EOSINOPHILS ABSOLUTE AUTO 0.14 K/mm3 (0.00-0.68); EOSINOPHILS PERCENT AUTO 2 % (0-6); Hematocrit 33.8 % (33.0-51.0); Hemoglobin 11.2 g/dL (11.5-16.0); IMMATURE GRAN ABSOLUTE AUTO 0.06 K/mm3 (0.00-0.10); IMMATURE GRAN PERCENT AUTO 1 % (0-1); LYMPHOCYTES ABSOLUTE AUTO 2.84 K/mm3 (0.84-5.20); LYMPHOCYTES PERCENT AUTO 41 % (21-46); MONOCYTES ABSOLUTE AUTO 0.82 K/mm3 (0.16-1.47); MONOCYTES PERCENT AUTO 12 % (4-13); Mean Corpuscular HGB 29.6 pg (26.0-34.0); Mean Corpuscular HGB Conc 33.1 g/dL (31.5-36.5); Mean Corpuscular Volume 89 fL (80-100); Mean Platelet Volume 9.4 fL (9.1-12.4); NEUTROPHILS ABSOLUTE AUTO 3.05 K/mm3 (1.96-9.15); NEUTROPHILS PERCENT AUTO 44 % (41-73); Platelet Count 351 K/mm3 (150-400); RDW Coefficient Variation 15.2 % (11.7-14.2); RDW Standard Deviation 49.4 fL (35.1-46.3); Red Blood Cell Count 3.79 M/mm3 (3.80-5.20); White Blood Cell Count 6.95 K/mm3 (4.00-11.30)
[2024-01-19 17:07] LABS: Albumin, Blood 3.3 g/dL (3.4-5.0); Albumin/Globulin Ratio 0.8 (0.8-1.8); Bilirubin, Total 0.5 mg/dL (0.1-1.0); Bun/Creatinine Ratio 12.3 (12.0-20.0); Calcium, Blood 9.3 mg/dL (8.5-10.1); Creatinine, Blood 0.73 mg/dL (0.40-1.00); Globulin, Blood 3.9 g/dL (2.2-4.0); Potassium, Blood 3.4 mmol/L (3.5-5.5); Total Protein, Blood 7.2 g/dL (6.4-8.2)
[2024-01-19] MEDS ORDERED: Clindamycin HCl 150 MG Cap PO ONE (17:30)
[2024-01-19] MEDS ORDERED: CefTRIAXone Sodium 2,000 MG in NS 100 ML IV ONE (17:30)
[2024-01-19] MEDS ORDERED: Clindamycin HC150 MG PO (17:36)
[2024-01-19 18:00] VITALS: BP 123/68
[2024-01-19] MEDS ORDERED: HYDROcodone 5-APAP 325 TAB PO ONE (18:10)
== END 2024-01-19 18:47 | disposition home or self-care (01) ==
LOC: ER 15:08
PROVIDERS: Student in an Organized Health Care Education/Training Program
DX: L03.113 Cellulitis of right upper limb (principal); I10 Essential (primary) hypertension; E78.5 Hyperlipidemia, unspecified; K21.9 Gastro-esophageal reflux disease without esophagitis; F17.210 Nicotine dependence, cigarettes, uncomplicated; Z79.899 Other long term (current) drug therapy
CPT/HCPCS: 73130; 80053; 83605; 85025; 96365; 99283-25; A9270; J0696

== ENCOUNTER 2024-08-04 10:16 | Day surgery (SDC) | payer MEDICARE, OTHER ==
[~2024-08-04] VITALS: Ht 152.4 cm; Wt 62.8 kg
[~2024-08-04 10:16] MED LIST changes: +Clindamycin HC150 MG PO; +Lactated Ringer's 1,000 ML IV ONE
[2024-08-04] MEDS ORDERED: CeFAZolin Sodium 2,000 MG VIAL ONE (10:48)
[2024-08-04] MEDS ORDERED: Lactated Ringer's 1,000 ML IV ONE (11:32)
[2024-08-04] MEDS ORDERED: propofoL 20 ML IV ONE (11:42)
[2024-08-04] MEDS ORDERED: Midazolam HCl 1MG / ML 2ML Vial ONE (11:43)
[2024-08-04] MEDS ORDERED: FentaNYL Citrate 50 MCG/ML 2 ML Injection ONE (11:43)
[2024-08-04] MEDS ORDERED: Ondansetron HCl 2 MG / ML 2ML Vial ONE (12:28)
[2024-08-04] MEDS ORDERED: Dexamethasone Sod Phos 10 MG/ML 1ML VIAL ONE (12:28)
[2024-08-04] MEDS ORDERED: Lidocaine HCl 2% 10 ML SDA INJ ONE (12:30)
[2024-08-04] MEDS ORDERED: Lidocaine HCl 2% 10 ML SDA ONE (12:40)
[2024-08-04 13:33] VITALS: BP 135/73
== END 2024-08-04 14:00 | disposition home or self-care (01) ==
LOC: ORSCSDS 10:16
PROVIDERS: Orthopaedic Surgery
PROC: 0RGW04Z Fusion of Right Finger Phalangeal Joint with Internal Fixation Device, Open Approach (ICD-10-PCS; principal; 2024-08-04 12:15)
DX: M19.041 Primary osteoarthritis, right hand (principal); I10 Essential (primary) hypertension; E78.5 Hyperlipidemia, unspecified; K21.9 Gastro-esophageal reflux disease without esophagitis; G62.9 Polyneuropathy, unspecified; Z79.899 Other long term (current) drug therapy
CPT/HCPCS: C1713; J0690; J1100; J2003; J2250; J2405; J2704; J3010; J7120

== ENCOUNTER 2024-09-29 10:44 | Day surgery (SDC) | payer MEDICARE, OTHER ==
[~2024-09-29] VITALS: Ht 152.4 cm; Wt 61.4 kg
[~2024-09-29 10:44] MED LIST changes: -Lactated Ringer's 1,000 ML IV ONE; +NS 500 ML IV ONE
[2024-09-29] MEDS ORDERED: NS 500 ML IV ONE (11:22)
[2024-09-29] MEDS ORDERED: propofoL 20 ML IV ONE ×3 (11:48→12:14)
[2024-09-29 12:31] VITALS: BP 121/73
== END 2024-09-29 12:58 | disposition home or self-care (01) ==
LOC: ORSCSDS 10:44
PROVIDERS: Orthopaedic Surgery
PROC: 0LB80ZZ Excision of Left Hand Tendon, Open Approach (ICD-10-PCS; principal; 2024-09-29 12:30)
DX: M67.442 Ganglion, left hand (principal); I10 Essential (primary) hypertension; K21.9 Gastro-esophageal reflux disease without esophagitis; F41.9 Anxiety disorder, unspecified; Z79.899 Other long term (current) drug therapy; Z01.812 Encounter for preprocedural laboratory examination
CPT/HCPCS: 36415; 80048; 88304; J2704; J7040